=== PATIENT | male | born 1975 | race African-American/Black ===

== ENCOUNTER 2017-01-01 21:01 | Emergency (ER) | payer SELFPAY ==
[2017-01-01 21:02] VITALS: BMI 27.1
--- NOTE | 2017-01-01 21:10 | ED PDOC ---
Arrival/HPI - General Chief Complaint: Cardiac Arrest Time Seen by Provider: 01/01/17 21:06 - History of Present Illness Narrative History of Present Illness (Text): 01/01/17 21:07 history obtained from [facility] 45yo male, hx of drug abuse, was last seen normal by family around 7pm. Pt was found by family unresponsive ~45min prior to arrival. CPR was not started for 20min. ALS intubated pt and L. shoulder IO was obtained. Pt was asystole the whole time. Pt was intubated, received 2 rounds of epi, also Ca, and bicarb. Brought into the ER. Still asystole. Another epi ordered. pt was pronounced at 20:57 Past Medical History - Provider Review Nursing Documentation Reviewed: Yes - Infectious Disease Hx of Infectious Diseases: None - Psychiatric Hx Substance Use: Yes - Anesthesia Hx Anesthesia: No Family/Social History Family/Social History: Unknown Family HX Smoking Status: Unknown If Ever Smoked Hx Alcohol Use: No Hx Substance Use: Yes Allergies/Home Meds Allergies/Adverse Reactions: Allergies Unobtainable Allergy (Verified 01/01/17 21:02) Home Medications: Home Meds Medication Instructions Recorded Confirmed Unobtainable 01/01/17 01/01/17 Review of Systems - Review of Systems Systems not reviewed;Unavailable: Intubated Physical Exam - Physical Exam Physical Exam Limitations: Other (CPR in progress, acuity of condition) Vital Signs Temp Pulse Resp 01/01/17 21:13 91.9 F L 01/01/17 21:01 0 L 0 L - Systems Exam Head: Present: Atraumatic, Normocephalic Pupils: Present: Non-Reactive, Other (dilated) Mouth: Present: Dry, Other (ET-tube in place) Respiratory/Chest: Present: Other (equal chest rise and fall with BVM) Cardiovascular: Present: Other (asystoly, no heart sounds) Abdomen: Present: Other (no stomach sounds with BVM ). No: Distention Upper Extremity: Present: Cyanosis. No: Edema Lower Extremity: Present: Cyanosis. No: Edema Skin: Present: Cold Medical Decision Making ED Course and Treatment: 01/01/17 21:13 45yo male, hx of drug use, brought into the ER CPR in progress, asystole. Per EMS, pt was last seen normal 7pm, asystle the whole time. CPR not started for 20 min. Total down time at least 45min. ETT placement confirmed via absences of stomach sounds and present of b/l lung sounds and equal chest rise and fall. Pt pronounced at 20:57 no pulse pupils dilated, not reactive to light no heart sounds no gag reflex asystole on monitor 01/01/17 21:28 spoke with patient's , informed of her 's passing she states that she was home for about 30min before she found him blue in the bathroom. states she did not hear a fall and there was no noise or any sound since she came home. Disposition/Present on Arrival - Present on Arrival Any Indicators Present on Arrival: No History of DVT/PE: No History of Uncontrolled Diabetes: No Urinary Catheter: No History of Decub. Ulcer: No History Surgical Site Infection Following: None - Disposition Have Diagnosis and Disposition been Completed?: Yes Diagnosis: Cardiac arrest Disposition: WITH WITHOUT AUTOPSY Disposition Time: 20:57 Condition:
[2017-01-01 21:14] VITALS: PULSE 0; RESP 0; TEMP 91.9
== END 2017-01-02 00:57 ==
LOC: EDBD → ED 21:01 → MERGE 21:01 → ED 01-02 00:57
DX: I46.9 Cardiac arrest, cause unspecified (principal)